=== PATIENT | male | born 1990 | race American Indian/Alaskan Native ===

== ENCOUNTER 2018-06-04 09:16 | Emergency (ER) | payer OTHER ==
--- NOTE | 2018-06-04 10:57 | Emergency Department Report ---
Abscess Boil HPI - HPI Chief Complaint: Extremity Injury, Lower Stated Complaint: LFT LEG PAIN/CRAMP Time Seen by Provider: 06/04/18 10:47 Duration: 3 Days Location: Lower Extremity Severity: Moderate History: Yes Pain, No Fever, No Purulent Drainage, No Numbness, No Foreign Body, No Previous History, No Insect Bite HPI: Mr. Vee is a very pleasant healthy 28-year-old male presents with abscess on the left posterior thigh. He was seen at urgent care clinic 2 days ago. He was prescribed cephalexin. He has persistent pain. Home Medications: Previous Rx's Medication Instructions Recorded Last Taken Type Sulfamethoxazole/Trimethoprim 1 each PO BID 10 Days #20 tablet 06/04/18 Unknown Rx [Bactrim DS TAB] Allergies/Adverse Reactions: Allergies Allergy/AdvReac Type Severity Reaction Status Date / Time No Known Allergies Allergy Unverified 06/04/18 09:17 ED Review of Systems ROS: Stated complaint: LFT LEG PAIN/CRAMP Other details as noted in HPI Constitutional: denies: fever, malaise Skin: rash, lesions, change in color ED Past Medical Hx - Past Medical History Previous Medical History?: No - Surgical History Past Surgical History?: No - Social History Smoking Status: Never Smoker Substance Use Type: None - Medications Home Medications: Home Medications Medication Instructions Recorded Confirmed Last Taken Type Sulfamethoxazole/Trimethoprim 1 each PO BID 10 Days #20 tablet 06/04/18 Unknown Rx [Bactrim DS TAB] ED Abscess Boil Physical Exam - Exam General: Vital signs noted. No distress. Alert and acting appropriately. Size: 4 cm Exam: Yes Tenderness, Yes Fluctuance, Yes Surrounding Cellulites/Erythema, Yes Normal Neurologic Exam, Yes Normal Circulation, No Lymphangitis, No Crepitation Exam: 4 cm abscess with central scabbed over ulceration ED Course Vital Signs 06/04/18 09:50 Temperature 98.1 F Pulse Rate 86 Respiratory 16 Rate Blood Pressure 139/94 [Left] O2 Sat by Pulse 97 Oximetry Critical care attestation.: If time is entered above; I have spent that time in minutes in the direct care of this critically ill patient, excluding procedure time. ED Medical Decision Making - Medical Decision Making Ms. Carver has a simple abscess without indication for I&D at this time. Recommended Bactrim as a secondary antibiotic to his initial cephalexin therapy. Recommended return in 3 days if abscess persists. Prescribed Bactrim ED Disposition Clinical Impression: Abscess of left thigh Disposition: DC- TO HOME OR SELFCARE Is pt being admited?: No Does the pt Need Aspirin: No Condition: Stable Instructions: Abscess (ED) Additional Instructions: Please return in 3 days in abscess has not decreased in size. Prescriptions: Sulfamethoxazole/Trimethoprim [Bactrim DS TAB] 1 each PO BID 10 Days #20 tablet Forms: Work/School Release Form(ED)
== END 2018-06-04 11:05 | disposition home or self-care (01) ==
LOC: ED 09:16
DX: L02.416 Cutaneous abscess of left lower limb (principal)
CPT/HCPCS: 99282